=== PATIENT | male | born 1965 | race Caucasian/White ===

== ENCOUNTER 2023-01-05 14:04 | Outpatient (CLI) | payer BC ==
[2023-01-05 15:16] LABS: #Basophils 0.1 10x3/uL (0.0-0.2); #Eosinphils 0.2 10x3/uL (0.0-0.5); #Monocytes 0.7 10x3/uL (0.0-1.1); #Neutrophils 2.1 10x3/uL (1.5-8.4); %Eosinophils 3.3 % (0.0-6.0); %Lymphocytes 37.1 % (18.0-47.0); %Monocytes 14.9 % (0.0-10.0); %Neutrophils 43.5 % (40.0-75.0); Hemoglobin 17.5 g/dL (13.5-17.5); Mean Corpuscular HGB CONC 35.7 g/dL (32.0-36.0); Mean Corpuscular Hemoglobin 32.2 pg (27.0-33.0); Mean Corpuscular Volume 90.2 fl (81.2-95.1); Mean Platelet Volume 10.6 fl (7.4-10.4); Platelet Count 217 10x3/uL (150-450); RBC Distribution Width 12.7 % (11.5-14.5); Red Blood Cell (RBC) Count 5.43 10x6/uL (4.32-5.72); White Blood Cell (WBC) Count 4.9 10x3/uL (3.5-10.5)
[2023-01-05 15:36] LABS: Anion Gap 12 mmol/L (10-20); BUN (Urea Nitrogen) 20 mg/dL (8.4-25.7); Calc. Creatinine Clearance 0 mL/min (70-130); Carbon Dioxide 24 mmol/L (22-29); Chloride 104 mmol/L (98-107); Estimated GFR 96; Glucose 70 mg/dL (70-105); Potassium 3.8 mmol/L (3.5-5.1); Sodium 136 mmol/L (136-145)
== END 2023-01-05 14:05 | disposition home or self-care (01) ==
LOC: LABBT 14:04
PROVIDERS: ATTEND Surgery
DX: Z01.818 Encounter for other preprocedural examination (principal); K42.9 Umbilical hernia without obstruction or gangrene
CPT/HCPCS: 80048; 85025; 93005; 93010

== ENCOUNTER 2023-01-08 10:07 | Day surgery (SDC) | payer BC ==
[2023-01-06 14:22] VITALS: BMI 29.8
[2023-01-08] MEDS ORDERED: Bupivacaine/Epinephrine 0.25% 30 ML VIAL ONE (12:07)
[2023-01-08] MEDS ORDERED: fentaNYL PF 100 MCG/2 ML SYRINGE ONE (12:08)
[2023-01-08] MEDS ORDERED: Midazolam HCl 2 mg/2 ml Vial ONE (12:08)
[2023-01-08] MEDS ORDERED: PROPOFOL 200 MG/20 ML VIAL ONE (12:23)
[2023-01-08] MEDS ORDERED: Lidocaine 1% PF 5 ML VIAL ONE (12:23)
[2023-01-08] MEDS ORDERED: Ketorolac Tromethamine 30 MG/ML VIAL ONE (12:23)
[2023-01-08] MEDS ORDERED: Ondansetron PF 4 MG/2 ML Vial ONE (12:23)
[2023-01-08] MEDS ORDERED: Dexamethasone 20 MG/5 ML VIAL ONE (12:23)
[2023-01-08] MEDS ORDERED: Fentanyl 100 MCG/2 ML VIAL ONE (13:05)
[2023-01-08] MEDS ORDERED: Meperidine HCl/PF 25 MG/ML VIAL ONE (13:31)
== END 2023-01-08 15:26 | disposition home or self-care (01) ==
LOC: SDC 10:07
PROVIDERS: ATTEND Surgery
PROC: 0WUF0JZ Supplement Abdominal Wall with Synthetic Substitute, Open Approach (ICD-10-PCS; principal; 2023-01-08)
DX: K42.9 Umbilical hernia without obstruction or gangrene (principal); Z86.16 Personal history of COVID-19; Z87.891 Personal history of nicotine dependence
CPT/HCPCS: C1889; J1100; J1885; J2175; J2250; J2405; J2704; J3010